=== PATIENT | male | born 2000 | race African-American/Black ===

== ENCOUNTER 2023-10-26 19:19 | Emergency (ER) | payer OTHER ==
[2023-10-26] MEDS ORDERED: LIDOCAINE 1% MPF 2 ML AMPULE ONE (19:34)
[2023-10-26] MEDS ORDERED: CEFTRIAXONE 500 MG/VIAL ONE (19:34)
[2023-10-26] MEDS ORDERED: AZITHROMYCIN 250 MG TAB ONE (19:34)
--- NOTE | 2023-10-26 19:34 | ER ---
Nurse's Notes [facility] Name: Satish Whitley Age: 23 yrs Sex: Male : 2000 Arrival Date: 10/26/2023 Time: 19:19 Bed 18 Private MD: Diagnosis: Contact with and (suspected) exposure to infections with a predominantly sexual mode of transmission Presentation: 10/25 19:24 Chief complaint: Patient states: had a "fun time" in [place] a few days ago and tm6 concerned I may have an STD. No symptoms. Coronavirus screen: Vaccine status: Patient reports receiving the 2nd dose of the covid vaccine. Ebola Screen: Patient negative for fever greater than or equal to 101.5 degrees Fahrenheit, and additional compatible Ebola Virus Disease symptoms Patient denies exposure to infectious person. No symptoms or risks identified at this time. Patient reports travel to Ebola-affected area in the 21 days before illness onset. Patient reports having traveled to: [place]. Initial Sepsis Screen: Does the patient meet any 2 criteria? No. Patient's initial sepsis screen is negative. Does the patient have a suspected source of infection? No. Patient's initial sepsis screen is negative. Risk Assessment: Do you want to hurt yourself or someone else? Patient reports no desire to harm self or others. Onset of symptoms was October 26, 2023. 19:24 Method Of Arrival: Ambulatory tm6 19:24 Acuity: ZAK 3 tm6 Triage Assessment: 19:25 General: Appears in no apparent distress. Behavior is calm, cooperative. Pain: Denies tm6 pain. EENT: No signs and/or symptoms were reported regarding the EENT system. Neuro: Level of Consciousness is awake, alert, obeys commands, Oriented to person, place, time, situation. Cardiovascular: Patient's skin is warm and dry. Respiratory: Airway is patent Respiratory effort is even, unlabored, Respiratory pattern is regular, symmetrical. GI: No signs and/or symptoms were reported involving the gastrointestinal system. Abdomen is flat, non-distended. : Reports no symptoms, but worried he might have an STD. Derm: No signs and/or symptoms reported regarding the dermatologic system. Musculoskeletal: No signs and/or symptoms reported regarding the musculoskeletal system. Historical: - Allergies: 19:25 No Known Allergies; tm6 - PMHx: 19:25 None; tm6 - PSHx: 19:25 None; tm6 - Immunization history:: Client reports receiving the 2nd dose of the Covid vaccine. - Infectious Disease History:: Denies. - Social history:: Smoking status: Patient reports the use of cigarette tobacco products, denies chronic smoking, but will smoke occasionally, Reported history of juuling and/or vaping. Patient uses alcohol, occasionally. Patient/guardian denies using street drugs. Screenin:29 [facility] ED Fall Risk Assessment (Adult) History of falling in the last 3 months, bm8 including since admission No falls in past 3 months (0 pts) Confusion or Disorientation No (0 pts) Intoxicated or Sedated No (0 pts) Impaired Gait No (0 pts) Mobility Assist Device Used No (0 pt) Altered Elimination No (0 pt) Score/Fall Risk Level 0 - 2 = Low Risk Oriented to surroundings, Maintained a safe environment, Educated pt \\T\\ family on fall prevention, incl call for assistance when getting out of bed, Assessed \\T\\ reinforced patient's understanding of fall precautions, Hourly rounding (assess needs \\T\\ fall precautionary measures) done, Used ambulatory aids as needed (educated on \\T\\ assisted with), Used gait belt as appropriate. Abuse screen: Denies threats or abuse. Nutritional screening: No deficits noted. Tuberculosis screening: No symptoms or risk factors identified. Assessment: 19:29 General: Appears in no apparent distress. comfortable, Behavior is calm, cooperative, bm8 appropriate for age. Pain: Denies pain. Neuro: No deficits noted. Level of Consciousness is awake, alert, obeys commands, Oriented to person, place, time, situation, Appropriate for age. Cardiovascular: Denies chest pain, Capillary refill < 3 seconds Patient's skin is warm and dry. Respiratory: Airway is patent Respiratory effort is even, unlabored, Respiratory pattern is regular, symmetrical. GI: No signs and/or symptoms were reported involving the gastrointestinal system. : PT reports That he may have had too good of a time in [place] and wants to get checked for STI's, denies discharge or any other urinary symptoms. Vital Signs: 19:23 BP 135 / 74; Pulse 64; Resp 19; Temp 98.6(O); Pulse Ox 99% on R/A; Height 5 ft. 8 in. ; tm6 Pain 0/10; 19:43 BP 131 / 74; Pulse 65; Resp 17; Temp 98.6; Pulse Ox 99% ; Pain 0/10; bm8 19:23 Pain Scale: Adult tm6 19:43 Pain Scale: Adult bm8 Irvine Coma Score: 19:29 Eye Response: spontaneous(4). Motor Response: obeys commands(6). Verbal Response: bm8 oriented(5). Total: 15. ED Course: 19:21 Patient arrived in ED. ra3 19:21 Shea Yoon PA-C is PHCP. sb4 19:21 Kiran Rodgers MD is Attending Physician. sb4 19:25 Triage completed. tm6 19:25 Arm band placed on right wrist. tm6 19:29 Freddie Douglas, AMILCAR is Primary Nurse. bm8 19:29 Patient has correct armband on for positive identification. Bed in low position. Call bm8 light in reach. Side rails up X 1. Client placed on continuous cardiac and pulse oximetry monitoring. NIBP monitoring applied. Pulse ox on. NIBP on. Door closed. Pillow given. Verbal reassurance given. Head of bed elevated. 19:29 No provider procedures requiring assistance completed. bm8 19:41 Patient did not have IV access during this emergency room visit. bm8 19:42 Provided Education on: safe sex practices and post er care. bm8 Administered Medications: 19:40 Drug: AZITHromycin PO 1 grams PO once Route: PO; bm8 19:43 Follow up: Response: No adverse reaction; Medication administered at discharge. bm8 19:40 Drug: Ondansetron Oral Disintegrating Tablet Oral Disintegrating Tablet 4 mg PO once bm8 Route: PO; 19:42 Follow up: Response: No adverse reaction; Medication Administered at Departure bm8 19:41 Drug: Rocephin (cefTRIAXone) IM 500 mg IM once Route: IM; Site: left gluteus; bm8 19:43 Follow up: Response: Medication administered at discharge. bm8 Medication: 19:29 VIS not applicable for this client. bm8 Outcome: 19:34 Discharge ordered by . sb4 19:41 Discharged to home ambulatory, bm8 19:41 Condition: stable 19:41 Discharge instructions given to patient, Instructed on discharge instructions, follow up and referral plans. no drinking with medication, no driving heavy equipment, medication usage, safe sex practices, safety practices, Demonstrated understanding of instructions, follow-up care, medications, 19:43 Patient left the ED. bm8 Signatures: Shea Yoon PA-C PA-C sb4 Duke Orosco RN RN tm6 Melania Carrasco ra3 Freddie Douglas RN RN bm8
--- NOTE | 2023-10-26 19:34 | EDPHYS ---
Physician Documentation [facility] Name: Satish Whitley Age: 23 yrs Sex: Male : 2000 Arrival Date: 10/26/2023 Time: 19:19 Bed 18 Private MD: ED Physician Kiran Rodgers HPI: 10/25 19:38 This 23 yrs old Black Male presents to ER via Ambulatory with complaints of STD sb4 Exposure. 19:38 The patient presents with a possible STD exposure, the patient has no apparent sb4 symptoms. Onset: The symptoms/episode began/occurred 2 day(s) ago. The patient has experienced a previous episode. The patient has not recently seen a physician. Historical: - Allergies: 19:25 No Known Allergies; tm6 - PMHx: 19:25 None; tm6 - PSHx: 19:25 None; tm6 - Immunization history:: Client reports receiving the 2nd dose of the Covid vaccine. - Infectious Disease History:: Denies. - Social history:: Smoking status: Patient reports the use of cigarette tobacco products, denies chronic smoking, but will smoke occasionally, Reported history of juuling and/or vaping. Patient uses alcohol, occasionally. Patient/guardian denies using street drugs. ROS: 19:38 Constitutional: Negative for fever, chills, and weight loss, sb4 19:38 All other systems are negative, Exam: 19:38 Constitutional: This is a well developed, well nourished patient who is awake, alert, sb4 and in no acute distress. Head/Face: Normocephalic, atraumatic. Eyes: Extra-ocular motions intact. Periorbital areas with no swelling, redness, or edema. ENT: Mucous membranes moist. Skin: Warm, dry with normal turgor. Normal color with no rashes, no lesions, and no evidence of cellulitis. Vital Signs: 19:23 BP 135 / 74; Pulse 64; Resp 19; Temp 98.6(O); Pulse Ox 99% on R/A; Height 5 ft. 8 in. ; tm6 Pain 0/10; 19:43 BP 131 / 74; Pulse 65; Resp 17; Temp 98.6; Pulse Ox 99% ; Pain 0/10; bm8 19:23 Pain Scale: Adult tm6 19:43 Pain Scale: Adult bm8 Gabriela Coma Score: 19:29 Eye Response: spontaneous(4). Motor Response: obeys commands(6). Verbal Response: bm8 oriented(5). Total: 15. MDM: 19:23 Patient medically screened. sb4 19:39 Data reviewed: vital signs, nurses notes, and as a result, I will discharge patient. sb4 Test considered but Not performed: Labs: will treat prophylactically, test is a send out. Counseling: I had a detailed discussion with the patient and/or guardian regarding the historical points, exam findings, and any diagnostic results supporting the discharge/admit diagnosis, to return to the emergency department if symptoms worsen or persist or if there are any questions or concerns that arise at home. Administered Medications: 19:40 Drug: AZITHromycin PO 1 grams PO once Route: PO; bm8 19:43 Follow up: Response: No adverse reaction; Medication administered at discharge. bm8 19:40 Drug: Ondansetron Oral Disintegrating Tablet Oral Disintegrating Tablet 4 mg PO once bm8 Route: PO; 19:42 Follow up: Response: No adverse reaction; Medication Administered at Departure bm8 19:41 Drug: Rocephin (cefTRIAXone) IM 500 mg IM once Route: IM; Site: left gluteus; bm8 19:43 Follow up: Response: Medication administered at discharge. bm8 Disposition Summary: 10/26/23 19:34 Discharge Ordered Notes: Location: Home sb4 Problem: new sb4 Symptoms: are unchanged sb4 Condition: Stable sb4 Diagnosis - Contact with and (suspected) exposure to infections with a predominantly sexual sb4 mode of transmission Followup: sb4 - With: Private Physician - When: As needed - Reason: Recheck today's complaints, Re-evaluation by your physician Discharge Instructions: - Discharge Summary Sheet sb4 - Preventing Sexually Transmitted Infections, Adult sb4 Forms: - Patient Portal Instructions sb4 - Leadership Thank You Letter sb4 Addendum: 10/28/2023 00:36 I was immediately available for consultation during this patient's visit. I did not e c2 personally see the patient or discuss the patient with the ANN. . Signatures: Shea Yoon PA-C PA-C sb4 Kiran Rodgers MD MD ec2 Duke Orosco RN RN 6 Freddie Douglas RN RN bm8
[2023-10-26] MEDS ORDERED: ONDANSETRON 4 MG (ODT) TAB ONE (19:35)
[2023-10-26 19:55] VITALS: TEMP 98.6; O2SAT 99
[2023-10-26 19:57] VITALS: BP 131/74
== END 2023-10-26 19:43 | disposition home or self-care (01) ==
LOC: ER 19:19
DX: Z20.2 Contact with and (suspected) exposure to infections with a predominantly sexual mode of transmission (principal)
CPT/HCPCS: 96372; 99284; Q0162